=== PATIENT | male | born 1975 ===

== ENCOUNTER 2017-06-19 06:45 | Emergency (ER) | payer BC ==
[2017-06-19 07:02] VITALS: BMI 36.2
[2017-06-19 07:05] VITALS: RESP 18
--- NOTE | 2017-06-19 07:40 | ED PDOC ---
HPI: CCC, URI, Sore Throat Time Seen by Provider: 06/19/17 07:08 Chief Complaint (Nursing): Cough, Cold, Congestion Chief Complaint (Provider): cough and pain History Per: Patient History/Exam Limitations: no limitations Onset/Duration Of Symptoms: Days (2 weeks) Current Symptoms Are (Timing): Still Present Location Of Pain: Throat, Other (right-side under the arm ) Additional Complaint(s): 41 year old male with no past medical history presents to the ED complaining of right-sided under the arm pain onset Tuesday. Reports the pain radiates to his back and he has difficulty breathing. Patient also states of coughing onset two and half weeks and intermittent fever with associated phlegm. He reports he wakes up sweating which is unusual. Patient has not taken the flu shot or medication for pain. Denies going to PMD or any heavy lifting. PMD: Jose Enrique Nicholas Past Medical History Reviewed: Historical Data, Nursing Documentation, Vital Signs Vital Signs: Last Vital Signs Temp 97.7 F 06/19/17 07:02 Pulse 75 06/19/17 08:24 Resp 18 06/19/17 07:40 BP 128/96 H 06/19/17 07:02 Pulse Ox 94 L 06/19/17 08:24 - Medical History PMH: Arthritis, Deep Vein Thrombosis, HTN, Pulmonary Embolism Denies: Chronic Kidney Disease - Surgical History Surgical History: No Surg Hx - Family History Family History: States: Unknown Family Hx - Social History Current smoker - smoking cessation education provided: Yes Alcohol: None Drugs: Denies - Immunization History Hx Tetanus Toxoid Vaccination: Yes Hx Influenza Vaccination: Yes Hx Pneumococcal Vaccination: No - Home Medications Home Medications: Ambulatory Orders Medication Instructions Recorded Albuterol HFA [Ventolin HFA 90 0.09 mg IH Q4 PRN #1 puff 12/24/15 mcg/actuation (8 g)] Albuterol Sulfate [Proair Hfa] 2 puff IH Q4 PRN 12/24/15 Atenolol/Chlorthalidone 1 tab PO DAILY 12/24/15 [Atenolol/Chlorthalidone 50 mg-25 mg] Cefdinir [Omnicef] 300 mg PO Q12 12/24/15 Naproxen [Naprosyn Tab] 375 mg PO BID PRN #15 tab 12/24/15 Promethazine/Codeine 5 ml PO Q6 PRN 12/24/15 [Codeine/Promethazine 10 MG/5 Ml-6.25 MG/5 Ml] predniSONE [predniSONE Tab] 40 mg PO DAILY #6 tab 12/24/15 Cyclobenzaprine [Cyclobenzaprine 10 mg PO TID #30 tab 06/19/17 HCl] Naproxen [Naprosyn] 500 mg PO BID PRN #20 tablet 06/19/17 - Allergies Allergies/Adverse Reactions: Allergies Allergy/AdvReac Type Severity Reaction Status Date / Time No Known Allergies Allergy Verified 06/19/17 07:02 Review of Systems ROS Statement: Except As Marked, All Systems Reviewed And Found Negative Constitutional: Positive for: Fever Respiratory: Positive for: Cough, Shortness of Breath, Sputum Musculoskeletal: Positive for: Arm Pain (right-sided ), Back Pain (right-sided) Physical Exam - Reviewed Nursing Documentation Reviewed: Yes Vital Signs Reviewed: Yes - Physical Exam Appears: Positive for: Non-toxic, No Acute Distress Head Exam: Positive for: ATRAUMATIC, NORMAL INSPECTION, NORMOCEPHALIC Skin: Positive for: Normal Color, Warm, Dry Eye Exam: Positive for: EOMI, Normal appearance, PERRL ENT: Positive for: TM Is/Are (erythematous (mild)), Nasal Congestion, Pharyngeal Erythema (mild), Tonsillar Swelling (mild) Neck: Positive for: Normal, Painless ROM, Supple. Negative for: Decreased ROM Cardiovascular/Chest: Positive for: Regular Rate, Rhythm. Negative for: Murmur Respiratory: Positive for: Normal Breath Sounds. Negative for: Decreased Breath Sounds, Accessory Muscle Use, Wheezing, Respiratory Distress Gastrointestinal/Abdominal: Positive for: Normal Exam, Bowel Sounds, Soft, Guarding. Negative for: Tenderness, Rebound Back: Positive for: Muscle Spasm, Other Extremity: Positive for: Normal ROM, Other (patient has difficulty getting up due to pain). Negative for: Tenderness, Pedal Edema, Deformity Neurologic/Psych: Positive for: Alert, Oriented (x3). Negative for: Motor/ Sensory Deficits - ECG ECG Rhythm: Positive for: Sinus Rhythm (normal) Interpretation Of ECG: Normal SNR, Normal Bouse, No acute changes, Rate: 75bpm Rate: 75 O2 Sat by Pulse Oximetry: 94 (RA) Pulse Ox Interpretation: Normal Medical Decision Making Medical Decision Making: Time: 723 Initial Plan: --EKG --Chest two views --Tylenol 975mg PO --Reevaluation Time: 810 FINDINGS: LINES AND TUBES: None. LUNG AND PLEURA: The lungs are well inflated and clear. There is linear scarring in the left lower lobe. No focal consolidation. HEART AND MEDIASTINUM: The heart is not enlarged. The hilar and mediastinal contours are within normal limits. SKELETAL STRUCTURES: The bony structures are within normal limits for the patient's age. VISUALIZED UPPER ABDOMEN: Normal. OTHER FINDINGS: None. IMPRESSION: No active pulmonary disease. Scribe Attestation: Documented by Fredrick Martínez, acting as a scribe for Cecy Martinez MD Provider Scribe Attestation: All medical record entries made by the Scribe were at my direction and personally dictated by me. I have reviewed the chart and agree that the record accurately reflects my personal performance of the history, physical exam, medical decision making, and the department course for this patient. I have also personally directed, reviewed, and agree with the discharge instructions and disposition. 9.00am - chest x-ray negative. pain likely muscular. will d/c with Naproxen and Flexeril. Patient counseled to followup with Dr. Nicholas. Disposition - Clinical Impression Clinical Impression: Muscular chest pain - Patient ED Disposition Is Patient to be Admitted: No Doctor Will See Patient In The: Office Counseled Patient/Family Regarding: Diagnosis, Need For Followup, Rx Given - Disposition Referrals: Jose Enrique Nicholas MD [Staff Provider] - [facility] [facility] [employer] [facility] [Outside] Disposition: Routine/Home Disposition Time: 09:00 Condition: STABLE Prescriptions: Cyclobenzaprine [Cyclobenzaprine HCl] 10 mg PO TID #30 tab Naproxen [Naprosyn] 500 mg PO BID PRN #20 tablet PRN Reason: Pain, Moderate (4-7) Instructions: Muscle Strain Forms: [facility] (Scottish), [facility] School/Work Excuse - POA Present On Arrival: None
--- NOTE | 2017-06-19 08:13 | RAD ---
HISTORY: COMPARISON: No prior. TECHNIQUE: Chest PA and lateral FINDINGS: LINES AND TUBES: None. LUNG AND PLEURA: The lungs are well inflated and clear. There is linear scarring in the left lower lobe. No focal consolidation. HEART AND MEDIASTINUM: The heart is not enlarged. The hilar and mediastinal contours are within normal limits. SKELETAL STRUCTURES: The bony structures are within normal limits for the patient's age. VISUALIZED UPPER ABDOMEN: Normal. OTHER FINDINGS: None. IMPRESSION: No active pulmonary disease.
[2017-06-19 09:23] VITALS: BP 130/68; PULSE 80; TEMP 98.9; O2SAT 96
--- NOTE | 2017-06-20 13:31 | CARD ---
APPROVED REPORT EKG Measurement Heart [id number] <Conclusion> Normal sinus rhythm Normal ECG
== END 2017-06-19 09:24 | disposition home or self-care (01) ==
LOC: H.ER 06:45
DX: R07.9 Chest pain, unspecified (principal); F17.200 Nicotine dependence, unspecified, uncomplicated; I10 Essential (primary) hypertension; Z86.711 Personal history of pulmonary embolism; Z86.718 Personal history of other venous thrombosis and embolism